=== PATIENT | female | born 1975 | race Caucasian/White ===

== ENCOUNTER 2017-07-13 11:13 | Outpatient (CLI) | payer BC | END 2017-07-13 11:14 | disposition home or self-care (01) | LOC: DTY/OP 11:13 | PROVIDERS: ATTEND Specialist | DX: Z01.818 Encounter for other preprocedural examination (principal); E66.01 Morbid (severe) obesity due to excess calories | CPT/HCPCS: 36415; 80053; 80061; 82306; 82607; 82728; 82746; 83036; 83540; 84425; 84436; 84443; 84479; 85025; 86677; 97802 ==

== ENCOUNTER 2017-08-16 11:30 | Inpatient (IN) | payer BC ==
--- NOTE | 2017-08-15 16:24 | HP ---
HISTORY OF PRESENT ILLNESS: A 42-year-old female recently attended our bariatric seminar and conside ring laparoscopic sleeve gastrectomy. She reports now for discussion. She lives in [place]. He r is retired [employer]. Patient states since she was 115 pounds when she was 23 years old, but salcido s consistently gained weight since her current age of 42. She has tried phentermine, losing 20 pound s, but gained it back as soon as she quits. She has tried many exercise programs and dietary efforts without durable success. She does smoke half a pack to a pack a day and is committed to stop smokin g and she will stop today. Her smokes some, not much, but he states he will also quit. He a ccompanies her today and they have attended our bariatric seminars, questions have been answered rega rding laparoscopic sleeve gastrectomy. The patient reports she does have GERD symptoms and takes Ewelina losec daily, but when she does not take Prilosec, she only has reflux symptoms once every 2-3 weeks. This is not a bad problem and has only occurred since she has gained weight. When she was thinner, she did not have this. Patient has symptoms of sleep apnea, but never has had a sleep study, her hus band witnesses her periods of apnea and snoring and restless sleep. She has been advised to start me dications for cholesterol, but she has been resistant to taking medications and thus has not started these. She complains of arthralgias in the back and feet related to her weight gain. She also suffe red stress urinary incontinence and arthralgias. ALLERGIES: None. SOCIAL HISTORY: Tobacco 1/2 pack per day. She states she will stop day. Alcohol rarely. MEDICATIONS: Synthroid 200 mcg a day, propranolol 40 mg a day, omeprazole 20 mg a day. PAST SURGICAL HISTORY: Appendectomy, cervical resection and tubal ligation. REVIEW OF SYSTEMS: Ten point noncontributory. PHYSICAL EXAMINATION: foot. VITAL SIGNS: 5 foot 3, 205 pounds, 36.3 BMI, 142/92, 86, 98.1 degrees. HEENT: Unremarkable. Pupils equal, round, reactive to light. Sclerae icteric. NECK: Neck, axilla or groin without lymphadenopathy. LUNGS: Clear to auscultation. CARDIAC: Regular rate and rhythm without murmur or gallop. ABDOMEN: Soft, obese, nontender. EXTREMITIES: Unremarkable. Palpable pedal pulses. NEUROLOGIC: Neurologically intact. No focal deficit. SKIN: Normal color, correct turgor. ASSESSMENT AND PLAN: Morbid obesity. The patient is committed to lifestyle changes and follow up to maximize her success. She has occasional reflux and I do not think that is a contraindication to a sleeve gastrectomy. I have explained the risks of operation, infection, bleeding, reoperation, perio perative leaks and bleeding, and understanding these risks and benefits, she consents. We will plan dietary counseling and psychology counseling, preoperative labs. Comorbidities of very mild GERD rel ated to weight gain, hypertension, arthralgias, elevated cholesterol, low back pain and symptoms of s leep apnea without previous sleep study, stress urinary incontinence, arthralgias.
[2017-08-16 10:56] VITALS: BMI 36.8
--- NOTE | 2017-08-16 12:20 | HP ---
This is an addendum to dictation #[id number] dictated 06/30/2017. HISTORY OF PRESENT ILLNESS: Jill Groves presents for followup in preparation for laparoscopic slee ve gastrectomy. She was seen 06/30/2017 after attending our bariatric seminar. She was 205 pounds, 36 BMI on 06/30/2017, today 208 pounds, 36 BMI. She has visited with our dietitian, has seen the ezra chologist and she is here for preoperative visit. She has comorbidities of hypertension, occasional infrequent GERD. She has a long history of unsucce ssful durable weight loss and wishes to proceed with laparoscopic sleeve gastrectomy. She understand s the risk of infection, bleeding, visceral injury and a staple line leakage, revisions and consents. She understands she will have to participate in good food selections to have a durable success. Ben au reports that her GERD has only been a problem since she has gained weight. She has never had probl ems with this in the past and she experiences reflux only once every 2-3 weeks. She only takes PPIs p.r.n. She has comorbidities of hypertension, elevated cholesterol, obesity related infrequent GERD and urinary urgency, undiagnosed sleep apnea, arthralgias, foot pain and knee pain. Preoperative lab oratories reveal a normal CBC, 07/13/2017, normal comprehensive metabolic profile. Cholesterol is el evated at 226, triglycerides 147, upper limits normal, hemoglobin A1c 5. Remainder of her labs preop eratively are normal. Thyroid function is normal. PAST MEDICAL HISTORY: Past medical history as noted above, obesity related GERD, hypertension, hypot hyroidism, Salas's thyroiditis, undiagnosed sleep apnea, no sleep study history. PAST SURGICAL HISTORY: Tubal ligation, laparoscopic appendectomy, cervix treated. MEDICATIONS: Synthroid daily 200 mcg, propranolol 40 mg a day, omeprazole 20 mg as needed. TOBACCO: None. ALCOHOL: None. REVIEW OF SYSTEMS: Ten point noncontributory. PHYSICAL EXAMINATION: VITAL SIGNS: Height 5 foot 3, 208 pounds, 36 BMI, 120/83, 75, 98.2 degrees. HEENT: Unremarkable. LUNGS: Clear to auscultation. CARDIAC: Regular rate and rhythm without murmur or gallop. ABDOMEN: Soft, nontender. EXTREMITIES: Unremarkable. ASSESSMENT AND PLAN: Morbid obesity. PLAN: Laparoscopic sleeve gastrectomy. She has met with our dietitian, seen a psychologist. She un derstands the risk and benefits and questions answered. We will proceed.
[2017-08-19] MEDS ORDERED: Heparin 5,000 UNITS/ML VIAL ONE (06:29)
[2017-08-19] MEDS ORDERED: Ketorolac Tromethamine 30 MG/ML VIAL ONE (06:29)
[2017-08-19] MEDS ORDERED: Scopolamine 1.5 mg/72 hour Patch ONE (06:29)
[2017-08-19] MEDS ORDERED: cefOXitin 2 GM, Syringe 1 ML in Sterile Water 10 ML SLOW IVP SCH (06:30)
[2017-08-19] MEDS ORDERED: Bupivacaine/Epinephrine 0.25% 30 ML VIAL ONE (06:39)
[2017-08-19] MEDS ORDERED: Fentanyl 250 MCG/5 ML VIAL ONE ×2 (06:59→09:48)
[2017-08-19] MEDS ORDERED: Promethazine HCl 25 MG/ML VIAL ONE (09:31)
[2017-08-19] MEDS ORDERED: Promethazine HCl 25 MG/ML VIAL SLOW IVP PRN (09:41)
[2017-08-19] MEDS ORDERED: Promethazine HCl 25 MG/ML VIAL IM PRN (09:41)
[2017-08-19] MEDS ORDERED: Ondansetron HCl/PF 4 MG/2 ML Vial IVP PRN (09:41)
[2017-08-19] MEDS ORDERED: Meperidine HCl/PF 25 MG/ML VIAL SLOW IVP PRN (09:41)
[2017-08-19] MEDS ORDERED: Morphine Sulfate 2 MG/ML SYRINGE SLOW IVP PRN (09:41)
[2017-08-19] MEDS ORDERED: Dextrose 50% Abboject 50 ML SYRINGE SLOW IVP PRN (09:51)
[2017-08-19] MEDS ORDERED: hydrALAZINE 20 MG/ML VIAL SLOW IVP PRN (09:51)
[2017-08-19] MEDS ORDERED: Dextrose 5% in Water 1,000 ML IV PRN (09:51)
[2017-08-19] MEDS ORDERED: Hydrocodone-Acetamin 15 ML UDCUP PO PRN (09:51)
[2017-08-19] MEDS ORDERED: diphenhydrAMINE 50 MG/ML VIAL IVP PRN (09:51)
[2017-08-19] MEDS ORDERED: hydrALAZINE 20 MG/ML VIAL ONE (10:01)
[2017-08-19] MEDS ORDERED: D5 1/2 NS w/20 mEq KCL 1,000 ML ONE (10:24)
--- NOTE | 2017-08-19 10:37 | OP ---
DATE OF PROCEDURE: 08/19/2017 PREOPERATIVE DIAGNOSES: Morbid obesity, 208 pounds, 36 BMI, hypertension, clinically, obstructive sl eep apnea. PROCEDURE: Laparoscopic sleeve gastrectomy over 36 Mauritanian bougie, staple line within 4 cm of the pyl orus, completion upper endoscopy, no bleeding. Easy passage, left subcostal 15 mm port site, stomach extraction site closed with 0 Vicryl GraNee needle. SURGEON: Dr. Luis Armando James ANESTHESIA: General. Local 0.25% Marcaine with epinephrine 60 mL. PROCEDURE: The patient was taken to the operating room where under general anesthesia, abdomen was p repared with ChloraPrep, draped in routine fashion. Local anesthetic infiltrated into the skin and s ubcutaneous tissue about all port sites. Supraumbilical incision made and pneumoperitoneum to 15 mmH g obtained with the Veress needle, replacing it with a 5 port and video laparoscope inserted. Bilate ral far lateral subcostal incision made and 5 ports placed. Bilateral midclavicular upper abdominal incisions made and a 15 port placed on the left and 12 port placed on the right. Subxiphoid incision made and a Nathansen liver retractor placed intra-abdominal reflecting the soft, malleable left lob e of the liver anteriorly against the abdominal wall. The stomach was identified. Placed the patien t in deep reverse Trendelenburg. Gastrocolic ligament and gastrosplenic ligament taken down with ser ial fires of the LigaSure, mobilizing the greater curvature of stomach within 4 cm of the pylorus and avoiding encroachment on the gastroesophageal junction. The left and right crura identified and the re was no hiatal hernia. Anesthesia placed a 36-Mauritanian bougie against and this laparoscopically adju sted against the lesser curvature and tipped down towards the pylorus and serial fires of the Endo-GI A stapler performed initially with green then gold and then blue fires, taking care to avoid encroach ment on the incisura and staying clear of the gastroesophageal junction. Once the stomach was comple tely freed and a good gastric sleeve recognized, the sleeve specimen removed through the 15 mm port a nd minute for port fascia approximated with 0 Vicryl GraNee needle [id number] suture. Staple li ne was inspected. Clips applied where necessary. I then performed an upper endoscopy placing the sc ope per os under direct visualization and using air insufflation passed throughout the esophagus and into the stomach, visualizing the pylorus, withdrawing the scope aspirating gas. There was no leakag e and no bleeding. Easy passage of the scope without obstruction. The esophagus and stomach, otherw ise normal. The scope was withdrawn. I then regowned and gloved and the staple line inspected. Goo d hemostasis noted. and Nathansen liver retractor removed. Liver appeared to be normal. Irrigant a nd pneumoperitoneum evacuated. All ports removed and all skin incisions approximated with interrupte d subdermal 4-0 Monocryl and DermaGlue applied.
[2017-08-19] MEDS: D5 1/2 NS w/20 mEq KCL 1,000 ML IV SCH ×2 (10:52→19:00)
[2017-08-19] MEDS: Ketorolac Tromethamine 30 MG/ML VIAL IVP SCH ×3 (11:04→23:31)
[2017-08-19] MEDS: Acetaminophen 1,000 MG in Premix Bag 1 BAG IVPB SCH ×3 (11:04→21:01)
[2017-08-19] MEDS: Ondansetron HCl/PF 4 MG/2 ML Vial IVP PRN ×2 (12:08→17:22)
[2017-08-19] MEDS ORDERED: FLU VACC QS2017-18 36 mo. & older 0.5 ML SYRINGE IM ONE (12:30)
[2017-08-19] MEDS ORDERED: Glycopyrrolate 0.2 MG/ML 5 ML SYRINGE ONE (14:40)
[2017-08-19] MEDS ORDERED: Lidocaine 1% PF 5 ML VIAL ONE (14:40)
[2017-08-19] MEDS ORDERED: Ondansetron HCl/PF 4 MG/2 ML Vial ONE (14:40)
[2017-08-19] MEDS ORDERED: PROPOFOL 200 MG/20 ML VIAL ONE (14:40)
[2017-08-19] MEDS ORDERED: Dexamethasone 20 MG/5 ML VIAL ONE (14:40)
[2017-08-19] MEDS ORDERED: Enoxaparin Sodium 40 MG/0.4 ML SYRINGE SC SCH (21:00)
[2017-08-20] MEDS: D5 1/2 NS w/20 mEq KCL 1,000 ML IV SCH ×2 (01:03→04:42)
[2017-08-20] MEDS: Acetaminophen 1,000 MG in Premix Bag 1 BAG IVPB SCH ×2 (04:42→10:18)
[2017-08-20 05:36] LABS: Anion Gap 12 mmol/L (10-20); BUN (Urea Nitrogen) 10 mg/dL (7.0-18.7); Calc. Creatinine Clearance 117 mL/min (70-130); Calcium 8.5 mg/dL (7.8-10.44); Carbon Dioxide 18 mmol/L (22-29); Chloride 107 mmol/L (98-107); Estimated GFR-MDRD 64; Glucose 133 mg/dL (70-105); Potassium 4.2 mmol/L (3.5-5.1); Sodium 133 mmol/L (136-145)
[2017-08-20 05:51] LABS: Band 7 % (5-11); Hemoglobin 10.6 g/dL (12.0-16.0); Lymphocytes 9 % (21-51); MDiff Complete? YES; Mean Corpuscular HGB CONC 31.5 g/dL (32.0-36.0); Mean Corpuscular Hemoglobin 29.7 pg (27.0-31.0); Mean Corpuscular Volume 94.1 fl (81.0-99.0); Mean Platelet Volume 8.3 fL (7.4-10.4); Monocytes 8 % (0-10); Neutrophil 76 % (42-75); PLT Morphology Comment Appears Adequate; Platelet Count 330 thou/uL (130-400); RBC Distribution Width 12.8 % (11.5-14.5); Red Blood Cell (RBC) Count 3.58 mill/uL (4.20-5.40); White Blood Cell (WBC) Count 21.5 thou/uL (4.8-10.8)
[2017-08-20] MEDS ORDERED: Levothyroxine Sodium 100 MCG TAB PO SCH (06:00)
[2017-08-20] MEDS: Ketorolac Tromethamine 30 MG/ML VIAL IVP SCH ×2 (06:06→11:55)
[2017-08-20] MEDS ORDERED: traMADol HCl 50 MG TAB PO PRN ×2 (08:00)
[2017-08-20] MEDS: Ondansetron HCl/PF 4 MG/2 ML Vial IVP PRN (08:07)
[2017-08-20] MEDS ORDERED: Pantoprazole 40 MG VIAL IVP SCH (09:00)
[2017-08-20] MEDS ORDERED: Propranolol 40 MG TAB PO SCH (09:00)
[2017-08-20 12:32] VITALS: BP 125/85; TEMP 97.7
[2017-08-20] MEDS ORDERED: Hydrocodone-Acetamin 15 ML UDCUP PO PRN (14:00)
--- NOTE | 2017-08-20 15:06 | PRG ---
DATE OF SERVICE: 08/20/2017 SUBJECTIVE: Ms. Groves is doing well today. PHYSICAL EXAMINATION: VITAL SIGNS: Stable, afebrile. LUNGS: Clear to auscultation. CARDIAC: Regular rate and rhythm without murmur or gallop. ABDOMEN: Soft, nontender. Surgical wounds look good. LABORATORY DATA: Normal. She is tolerating her liquids. She will be discharged home today with Lortab Elixir as needed over-t he-counter Tylenol pills or elixirs as needed. Follow in my office per appointment in 1-2 weeks. Di et and activity as tolerated, encourage ambulation.
[2017-08-20] MEDS ORDERED: Acetaminophen 500 MG TAB PO PRN (16:00)
--- NOTE | 2017-08-20 21:13 | DIS ---
DATE OF ADMISSION: 08/19/2017 DATE OF DISCHARGE: 08/20/2017 DISCHARGE DIAGNOSES: Morbid obesity, desires sleeve gastrectomy post-procedures laparoscopic sleeve gastrectomy, 36-Central African bougie, 4 cm within the pylorus, completion endoscopy. HISTORY: A 42-year-old female ago, attending our bariatric seminar gone through our bariatric preope rative program, seen by the psychologist, felt to be a good appropriate candidate, and seen by dietar y education on perioperative dietary changes for sleeve gastrectomy admitted the day of surgery after undergoing laparoscopic sleeve gastrectomy. Postoperatively, did well, convalesced, tolerated her d iet. This is one of my first patients but did not have a swallow study, as we have quit doing though , she did well, tolerated her liquids. Labs are normal, post-discharge. She will follow up in my of ariel in 1-2 weeks.
--- NOTE | 2017-09-16 09:36 | EKG ---
Test Reason : PREOP Blood Pressure : / mmHG Vent. Rate : 056 BPM Atrial Rate : 056 BPM P-R Int : 178 ms QRS Dur : 084 ms QT Int : 436 ms P-R-T Axes : 043 073 052 degrees QTc Int : 420 ms Sinus bradycardia with sinus arrhythmia Otherwise normal ECG No previous ECGs available Confirmed by DR. Jeremiah HILLMAN ([id number]) on 09/16/2017 9:34:31 AM Referred By: [place] Confirmed By:DR. Jeremiah HILLMAN
== END 2017-08-20 14:21 | disposition home or self-care (01) | DRG 621 ==
LOC: SURG A 08-19 06:09 → SJJU 08-19 10:17
PROVIDERS: ADMIT Specialist; ATTEND Specialist
PROC: 0DB64Z3 Excision of Stomach, Percutaneous Endoscopic Approach, Vertical (ICD-10-PCS; principal; 2017-08-19)
DX: E66.01 Morbid (severe) obesity due to excess calories (principal); E03.9 Hypothyroidism, unspecified; E78.5 Hyperlipidemia, unspecified; I10 Essential (primary) hypertension; K21.9 Gastro-esophageal reflux disease without esophagitis; G47.30 Sleep apnea, unspecified; Z68.36 Body mass index [BMI] 36.0-36.9, adult; F17.210 Nicotine dependence, cigarettes, uncomplicated
CPT/HCPCS: 36415; 80048; 85025; 88307; 88312; 93005; 93010; 94760; A4216; J0131; J0360; J0694; J1100; J1200; J1644; J1650; J1885; J2001; J2270; J2405; J2550; J2704; J3010

== ENCOUNTER 2017-08-28 21:11 | Inpatient (IN) | payer BC ==
[2017-08-28] MEDS ORDERED: Pantoprazole 40 MG VIAL IVP SCH (21:30)
[2017-08-28] MEDS: diphenhydrAMINE 50 MG/ML VIAL IVP PRN (22:40)
[2017-08-28] MEDS: Ketorolac Tromethamine 30 MG/ML VIAL IVP PRN (22:40)
[2017-08-28] MEDS: Acetaminophen 500 MG TAB PO PRN (22:40)
[2017-08-29] MEDS: Lactated Ringer's 1,000 ML IV SCH ×4 (03:41→19:58)
[2017-08-29 05:49] LABS: #Eosinphils 0.3 thou/uL (0.0-0.7); #Neutrophils 6.6 thou/uL (1.40-6.50); %Eosinophils 2.7 % (0.0-10.0); %Lymphocytes 20.2 % (21.0-51.0); %Monocytes 9.9 % (0.0-10.0); %Neutrophils 67.2 % (42.0-75.0); Mean Corpuscular HGB CONC 32.1 g/dL (32.0-36.0); Mean Corpuscular Hemoglobin 30.3 pg (27.0-31.0); Mean Corpuscular Volume 94.3 fl (81.0-99.0); Mean Platelet Volume 6.8 fL (7.4-10.4); Platelet Count 369 thou/uL (130-400); RBC Distribution Width 12.9 % (11.5-14.5); Red Blood Cell (RBC) Count 2.98 mill/uL (4.20-5.40); White Blood Cell (WBC) Count 9.9 thou/uL (4.8-10.8)
[2017-08-29 05:58] LABS: Anion Gap 12 mmol/L (10-20); BUN (Urea Nitrogen) 6 mg/dL (7.0-18.7); Calc. Creatinine Clearance 159 mL/min (70-130); Calcium 8.5 mg/dL (7.8-10.44); Carbon Dioxide 21 mmol/L (22-29); Chloride 109 mmol/L (98-107); Estimated GFR-MDRD Greater than 90; Glucose 79 mg/dL (70-105); Potassium 3.8 mmol/L (3.5-5.1); Sodium 138 mmol/L (136-145)
[2017-08-29] MEDS: Acetaminophen 500 MG TAB PO PRN ×2 (06:00→13:24)
[2017-08-29] MEDS: Ketorolac Tromethamine 30 MG/ML VIAL IVP PRN ×3 (06:00→19:57)
[2017-08-29 06:14] VITALS: BMI 35.9
--- NOTE | 2017-08-29 06:22 | HP ---
ATTENDING PHYSICIAN: Dr. Luis Armando James HISTORY OF PRESENT ILLNESS: Jill Edmondson is a 42-year-old female status post laparoscopic sleeve gas trectomy with Dr. James on 08/19/2017. Postoperatively, the patient was doing well and was discharg ed home on 08/20/2017. Since the time of discharge, the patient states that she has had persistent a bdominal pain which has continued to worsen. The patient states that she has been unable to tolerate the Marshall elixir secondary to headache, and that Tylenol has been unable to control the pain. As th e pain has been increasing she was also constipated starting 08/25/2017. She did give herself an daniel ma and has had multiple diarrhea-like bowel movements since that time, but no solid stool. This has not helped her pain. Overnight last night the patient reports a fever of 102 degrees associated with chills earlier this morning. She states that her pain is primarily left sided/left flank pain that radiates towards the front. She can find no aggravating or alleviating factors. She describes it as intermittent and crampy. She presented to the [facility] earlier today where she h ad a CT scan performed that demonstrated a subcapsular fluid collection around the spleen and splenic hematoma. She was transferred to [facility] for further management and care. Upon our meeta luation, the patient reports a chief complaint of left-sided pain as described. She has been afebril e since the time of arrival. ALLERGIES: None. HOME MEDICATIONS: Propranolol, Zofran, omeprazole, Synthroid. PAST MEDICAL HISTORY: Chronic medical illnesses include obesity, GERD, hypertension, hypothyroidism, status post Salas's thyroiditis. PAST SURGICAL HISTORY: Tubal ligation, laparoscopic appendectomy and laparoscopic sleeve gastrectomy . SOCIAL HISTORY: The patient denies tobacco or illicit drug use. PHYSICAL EXAMINATION: VITAL SIGNS: Blood pressure 120/78, pulse 77, temperature 98.4. GENERAL: A well-developed female in no acute distress, resting in bed. RESPIRATORY: Breathing is nonlabored. CARDIOVASCULAR: Regular rate and rhythm. ABDOMEN: Soft, nontender to palpation. No signs of peritonitis, guarding or rigidity. Surgical sit es are clean, dry, and intact without signs of erythema or drainage. EXTREMITIES: Moves all extremities x4. NEUROLOGIC: No focal deficit was noted. LABORATORY DATA: WBC 13.4, hemoglobin 10.7, hematocrit 31.5, platelet count 403. Sodium 137, potass ium 3.9, chloride 103, carbon dioxide 17, BUN 8, creatinine 0.72, glucose 88. Lactic acid 1.0. AST, ALT, and bilirubin within normal limits. Lipase 38. Urinalysis showed ketonuria, trace blood, smal l amount of bilirubin, some urobilinogen, 11-20 squamous cells and 2+ bacteria. RADIOLOGIC FINDINGS: CT of the abdomen and pelvis demonstrated subcapsular hematoma of the spleen wi th a small splenic lac medially and left-sided hemoperitoneum as well as left lung atelectasis. Ches t x-ray with left pleural effusion/atelectasis. ASSESSMENT: 1. Abdominal pain status post laparoscopic sleeve gastrectomy. 2. Splenic hematoma. 3. Acute blood loss anemia, stable from discharge 08/20/2017. 4. History of hypertension. 5. History of hypothyroidism. PLAN: Admit to Dr. James's service for pain control. A.m. labs. Gentle IV fluid hydration. Encou rage incentive spirometry and pulmonary toileting. The patient states that she has been having diffi culty sleeping secondary to pain. We will add IV Benadryl for now. The patient was seen and evaluat ed with Dr. Zamora who agrees with the assessment and plan.
[2017-08-29] MEDS: Pantoprazole 40 MG VIAL IVP SCH (09:29)
[2017-08-29] MEDS: Polyethylene Glycol 3350 17 GM Packet PO SCH (09:29)
[2017-08-29] MEDS ORDERED: Levothyroxine Sodium 100 MCG TAB PO SCH (11:00)
--- NOTE | 2017-08-29 12:09 | PRG ---
DATE OF SERVICE: 08/29/2017 HISTORY OF PRESENT ILLNESS: Jill Groves is a 42-year-old female, who underwent, 08/19/2017, lap aroscopic sleeve gastrectomy over a 36-Yakut bougie with clips placed along the staple line for hemo stasis. Staple line within 4 cm of the pylorus with postoperative upper endoscopy for morbid obesity , 208 pounds, 36 BMI. Comorbidities are hypertension chronically and symptoms of sleep apnea clinica lly without previous sleep study. The patient states that she was doing well and she had some upper abdominal discomfort from her incisions, but this is improving. She was tolerating her diet, taking her bariatric liquids and protein shakes without problems. Today, is Tuesday; she called [facility] and complained of some lower abdominal discomfort and had not had a bowel movement in several days . Dr. Cleveland on-call recommended enemas. The patient took several enemas and manually disimpacted herself of hard stool and felt a little better, but after undergoing the enemas, she began having lef t upper quadrant pain and nausea. She called Tuesday, yesterday, and given these complaints, even tho ugh she was having new left upper quadrant pain and reported a fever to 102.0 degrees, she went to [facility] (she lives in [place], [place]) and was evaluated there with a CT scan of the abdomen and pelvis with p.o. and IV contrast and laboratories. Her white count was mildly eleva lucía at 13,000. She had a mild increase in her anion gap. Her hemoglobin was 10.4. Her vital signs were stable, and because of the pain, she was having nausea, and a CAT scan obtained revealed absence of any post-sleeve gastrectomy leak, but she did have a large perisplenic hematoma, subcapsular kate alphonse, with some fluid in her pelvis. Because of her pain and these changes, she was admitted for hos pitalization hydration today. CAT scan also revealed some subtle densities in her gallbladder, suspi cious for stone or sludge. After overnight hydration and observation, her hemoglobin is now 9.0. Pr ior her operation, it was 14; postoperatively, 10.6; last night, 10.7; and 9.0 today. Patient states she feels somewhat better today, and she is tolerating liquids. Again, she states she only began salcido ving left upper quadrant pain after she took the enemas 3 days ago. There is no history of trauma. PHYSICAL EXAMINATION: VITAL SIGNS: 98.2 degrees, 68, 114/75. Currently 5 feet 3, 202 pounds, 35 BMI. LUNGS: Clear to auscultation. CARDIAC: Regular rate and rhythm without murmur, rub, or gallop. ABDOMEN: Soft, bowel sounds present, no guarding, mild tenderness in left upper quadrant. Surgical sites look good. No evidence of hernias. ASSESSMENT AND PLAN: Post-sleeve gastrectomy, perisplenic hematoma. This seems to be related to her enemas, and she was not having this pain postoperatively until after she took the enemas. Plan at t his time is to observe her. There is no indication for surgery. We will check her hemoglobin later today and tomorrow. Because of her CT scan findings of an abnormal gallbladder, we will obtain ultra sound of her gallbladder. We would want her to be ambulatory and SCDs and avoid Lovenox at this time . Hopefully, can discharge her home in the next 24 hours.
[2017-08-29] MEDS: Levothyroxine Sodium 100 MCG TAB PO SCH (13:24)
--- NOTE | 2017-08-29 14:08 | ULT ---
GALLBLADDER ULTRASOUND: Date: 08/29/17 HISTORY: Abnormal CT with hyperdensity noted in the gallbladder. COMPARISON: None. CORRELATION: Abdomen and pelvic CT dated 08/28/17. TECHNIQUE: Utilizing a multihertz transducer, sonographic imaging of the right upper quadrant is performed in th e longitudinal and transverse plane. FINDINGS: The head of the pancreas has a normal echotexture. The remainder of the pancreas is obscured by bowel gas. Visualized IVC is unremarkable. Hepatic parenchyma has a normal echotexture. No hepatic masses or intrahepatic biliary dilatation. Co ntour of the hepatic margin is maintained. Right hepatic lobe measures 16.5 cm. Main portal vein is patent. Appropriate direction of flow. Common bile duct diameter is 0.6 cm. There is echogenic material within the lumen of the gallbladder which may represent a significant ajay unt of sludge with possible small stones. Gallbladder wall is not thickened. There is no pericholecys tic fluid. Service Plumber reports a negative Sterling's sign. Right kidney measures 9.9 cm in maximum dimension. No hydronephrosis. IMPRESSION: Sludge and possible small stones within the lumen of the gallbladder. Findings do not suggest cholecy stitis at this time. Consider HIDA scan if warranted. POS: SHALA
[2017-08-29 17:08] LABS: #Eosinphils 0.3 thou/uL (0.0-0.7); #Lymphocytes 1.7 thou/uL (1.20-3.40); #Monocytes 0.9 thou/uL (0.11-0.59); #Neutrophils 6.4 thou/uL (1.40-6.50); %Basophils 0.3 % (0.0-1.0); %Eosinophils 2.9 % (0.0-10.0); %Lymphocytes 18.2 % (21.0-51.0); %Monocytes 10.1 % (0.0-10.0); %Neutrophils 68.4 % (42.0-75.0); Hemoglobin 9.8 g/dL (12.0-16.0); Mean Corpuscular HGB CONC 32.4 g/dL (32.0-36.0); Mean Corpuscular Hemoglobin 30.1 pg (27.0-31.0); Mean Corpuscular Volume 92.7 fl (81.0-99.0); Mean Platelet Volume 6.7 fL (7.4-10.4); Platelet Count 394 thou/uL (130-400); RBC Distribution Width 12.9 % (11.5-14.5); Red Blood Cell (RBC) Count 3.27 mill/uL (4.20-5.40); White Blood Cell (WBC) Count 9.3 thou/uL (4.8-10.8)
[2017-08-29] MEDS: diphenhydrAMINE 50 MG/ML VIAL IVP PRN (21:56)
[2017-08-30] MEDS: diphenhydrAMINE 50 MG/ML VIAL IVP PRN (00:26)
[2017-08-30] MEDS: Lactated Ringer's 1,000 ML IV SCH ×3 (03:08→21:25)
[2017-08-30 04:52] LABS: #Eosinphils 0.3 thou/uL (0.0-0.7); #Lymphocytes 1.7 thou/uL (1.20-3.40); #Monocytes 0.8 thou/uL (0.11-0.59); #Neutrophils 6.5 thou/uL (1.40-6.50); %Basophils 0.2 % (0.0-1.0); %Eosinophils 3.1 % (0.0-10.0); %Lymphocytes 18.1 % (21.0-51.0); %Monocytes 8.5 % (0.0-10.0); %Neutrophils 70.1 % (42.0-75.0); Hemoglobin 9.5 g/dL (12.0-16.0); Mean Corpuscular HGB CONC 32.2 g/dL (32.0-36.0); Mean Corpuscular Hemoglobin 31.1 pg (27.0-31.0); Mean Corpuscular Volume 96.5 fl (81.0-99.0); Platelet Count 397 thou/uL (130-400); RBC Distribution Width 13.1 % (11.5-14.5); Red Blood Cell (RBC) Count 3.07 mill/uL (4.20-5.40); White Blood Cell (WBC) Count 9.3 thou/uL (4.8-10.8)
[2017-08-30] MEDS: Levothyroxine Sodium 100 MCG TAB PO SCH (05:29)
[2017-08-30] MEDS: Ketorolac Tromethamine 30 MG/ML VIAL IVP PRN ×2 (05:32→17:24)
[2017-08-30] MEDS: Pantoprazole 40 MG VIAL IVP SCH (08:30)
[2017-08-30] MEDS: Polyethylene Glycol 3350 17 GM Packet PO SCH (09:10)
[2017-08-30] MEDS ORDERED: Ketorolac Tromethamine 30 MG/ML VIAL IVP SCH (15:45)
[2017-08-30] MEDS ORDERED: Acetaminophen 1,000 MG in Premix Bag 1 BAG IVPB SCH (15:45)
[2017-08-30] MEDS ORDERED: Scopolamine 1.5 mg/72 hour Patch TD SCH (16:00)
--- NOTE | 2017-08-30 16:16 | PRG ---
DATE OF SERVICE: 08/30/2017 SUBJECTIVE: Ms. Groves is doing better today. She is still having pain in left upper quadrant. OBJECTIVE: VITAL SIGNS: 98.3 degrees, 79, 143/95. LUNGS: Clear to auscultation. ABDOMEN: Soft. EXTREMITIES: Unremarkable. LABORATORY DATA: Hemoglobin 9.5, white count 9.3. Basic metabolic profile, stable yesterday. A CAT scan on admission revealed some gallbladder abnormalities. Ultrasound yesterday revealed gallstones , sludge. When I informed the patient of this, she reports past history of epigastric right upper qu adrant pain, postprandial. She has symptomatic gallstones. Although the reason for admission was he r perisplenic hematoma related to her enemas, she does report a past history of cholecystitis, cholel ithiasis, biliary colic. She wants to have this taken care of before she leaves the hospital, so she minimizes her time off work. Plan is for a laparoscopic cholecystectomy tomorrow. Risk of infectio n, bleeding, visceral injury, open procedure discussed. She consents. ASSESSMENT AND PLAN: Biliary colic. PLAN: Laparoscopic cholecystectomy tomorrow and discharge home later tomorrow.
[2017-08-31 05:33] LABS: #Eosinphils 0.3 thou/uL (0.0-0.7); #Lymphocytes 2.1 thou/uL (1.20-3.40); #Monocytes 0.9 thou/uL (0.11-0.59); #Neutrophils 7.7 thou/uL (1.40-6.50); %Basophils 0.3 % (0.0-1.0); %Eosinophils 2.8 % (0.0-10.0); %Lymphocytes 18.7 % (21.0-51.0); %Neutrophils 70.2 % (42.0-75.0); Mean Corpuscular HGB CONC 31.5 g/dL (32.0-36.0); Mean Corpuscular Hemoglobin 30.5 pg (27.0-31.0); Mean Corpuscular Volume 97.1 fl (81.0-99.0); Mean Platelet Volume 7.5 fL (7.4-10.4); Platelet Count 402 thou/uL (130-400); RBC Distribution Width 13.5 % (11.5-14.5); Red Blood Cell (RBC) Count 3.26 mill/uL (4.20-5.40)
[2017-08-31 05:42] LABS: ALT (SGPT) 9 U/L (8-55); AST (SGOT) 12 U/L (5-34); Albumin 3.1 g/dL (3.5-5.0); Alkaline Phosphatase 83 U/L (40-150); Anion Gap 15 mmol/L (10-20); BUN (Urea Nitrogen) 5 mg/dL (7.0-18.7); Bilirubin, Total 0.4 mg/dL (0.2-1.2); Calc. Creatinine Clearance 151 mL/min (70-130); Calcium 8.8 mg/dL (7.8-10.44); Carbon Dioxide 20 mmol/L (22-29); Chloride 107 mmol/L (98-107); Estimated GFR-MDRD 90; Globulin 2.9 g/dL (2.4-3.5); Glucose 76 mg/dL (70-105); Potassium 3.6 mmol/L (3.5-5.1); Sodium 138 mmol/L (136-145)
[2017-08-31] MEDS: Levothyroxine Sodium 100 MCG TAB PO SCH (06:11)
[2017-08-31] MEDS: Lactated Ringer's 1,000 ML IV SCH (06:24)
[2017-08-31] MEDS ORDERED: Bupivacaine HCl 0.5%/Epinephrine 1:200,000/PF 30 ml Vial ONE (07:45)
[2017-08-31] MEDS ORDERED: Acetaminophen 500 MG TAB PO PRN (08:14)
[2017-08-31] MEDS ORDERED: traMADol HCl 50 MG TAB PO PRN ×2 (08:14)
[2017-08-31 08:26] VITALS: BP 137/70
[2017-08-31] MEDS ORDERED: Levofloxacin 500 mg/D5W 100 ml Premix Bag ONE (08:41)
[2017-08-31] MEDS ORDERED: Ketorolac Tromethamine 30 MG/ML VIAL ONE (08:41)
[2017-08-31] MEDS ORDERED: Non-Formulary Item 1 EACH (Levothyroxine Sodium [Synthroid] 1 TAB) PO SCH (09:00)
[2017-08-31] MEDS ORDERED: Propranolol 40 MG TAB PO SCH (09:00)
[2017-08-31] MEDS ORDERED: Fentanyl 250 MCG/5 ML VIAL ONE (09:30)
[2017-08-31] MEDS ORDERED: Midazolam HCl 5 mg/5 ml Vial ONE (09:37)
[2017-08-31] MEDS: Polyethylene Glycol 3350 17 GM Packet PO SCH (09:55)
[2017-08-31] MEDS ORDERED: Ondansetron HCl/PF 4 MG/2 ML Vial IVP PRN (10:37)
[2017-08-31] MEDS ORDERED: Ketorolac Tromethamine 30 MG/ML VIAL IVP PRN (10:37)
[2017-08-31] MEDS ORDERED: Promethazine HCl 25 MG/ML VIAL IM PRN (10:37)
[2017-08-31] MEDS ORDERED: Meperidine HCl/PF 25 MG/ML VIAL SLOW IVP PRN (10:37)
[2017-08-31] MEDS ORDERED: Morphine Sulfate 2 MG/ML SYRINGE SLOW IVP PRN (10:37)
[2017-08-31] MEDS ORDERED: Promethazine HCl 25 MG/ML VIAL SLOW IVP PRN (10:37)
[2017-08-31] MEDS ORDERED: HYDROmorphone 2 MG/ML VIAL SLOW IVP PRN (10:37)
[2017-08-31] MEDS ORDERED: Promethazine HCl 25 MG/ML VIAL ONE (10:42)
--- NOTE | 2017-08-31 10:50 | OP ---
PREOPERATIVE DIAGNOSES: Status post laparoscopic sleeve gastrectomy with postoperative splenic hemat christen after enemas, stable hemoglobin 10.4, symptomatic cholelithiasis, chronic cholecystitis. PROCEDURE: Laparoscopic video cholecystectomy. SURGEON: Luis Armando James M.D. ANESTHESIA: General. Local 0.5% Marcaine with epinephrine, 30 mL. ESTIMATED BLOOD LOSS: Less than 10 mL. DESCRIPTION OF PROCEDURE: The patient was taken to the operating room under general anesthesia, abdo men was prepped with ChloraPrep and draped in routine fashion. Local anesthetic infiltrated into the skin and subcutaneous tissue about the port sites. The infraumbilical incision made through an old laparoscopic infraumbilical scar and pneumoperitoneum to 15 mmHg obtained with the Veress needle, rep lacing it with a 5 port and video laparoscope inserted. Liver appeared to be normal. Gallbladder salcido d stones and appeared to be cholesterolosis visualized through thin gallbladder wall. Fundus grasped and reflected cephalad. Infundibulum was grasped and reflected laterally. Cystic artery and duct d issected free. Critical view obtained. Cystic artery is duct doubly clipped proximally, divided. G allbladder dissected free from liver bed obtaining good hemostasis prior to division of final periton eal attachments. Gallbladder and contents removed and submitted to Pathology. Good hemostasis ensur ed in liver bed with cautery. Sujatha was applied. Irrigant and pneumoperitoneum evacuated after sle rubia gastrectomy was visualized. There was no hematoma around the sleeve gastrectomy and no abnormal findings. There were some omental adhesions in the left upper quadrant. I did not take these down t o visualize the spleen that by CAT scan had a perisplenic or intracapsular hematoma. Pneumoperitoneu m evacuated. All instruments removed and all skin incisions approximated with interrupted subdermal 4-0 Monocryl and DermaGlue applied.
--- NOTE | 2017-08-31 11:04 | DIS ---
DISCHARGE DIAGNOSES: 1. Perisplenic hematoma occurring after enemas. 2. Status post laparoscopic sleeve gastrectomy on 08/19/2017, 208 pounds, 36 BMI preoperatively. 3. Hypertension clinically. 4. Obstructive sleep apnea clinically. HISTORY: A 42-year-old female undergoing laparoscopic sleeve gastrectomy. Discharged home the next day. She was doing well, progressing on her bariatric full liquids experiencing lower abdominal pain . She called the physician vocational horticulture instructor who instructed her to take enemas. She had not had a bowel movem ent in several days. The patient took several enemas manually disimpacted herself of hard stool and then after that her lower abdominal pain resolved, but she began having left upper quadrant pain. Ben au called the on-call doctor 3 days after that event, Tuesday, who the physician vocational horticulture instructor director lois everett. After speaking to her, since she lives in [place] sent her to [facility] and t alked to the emergency room physicians there and they did a CAT scan with oral and IV contrast reveal ing absence of any leak, but she did have a perisplenic hematoma, some pelvic fluid and her hemoglobi n had dropped from preoperative 14, hemoglobin the day of discharge 10.6. When she was reevaluated i t was 10.7 on 08/28/2017 and then dropped to 9 and was 9.8, 9.5 and now 10 at the time of discharge. She was not transfused. The patient was observed. Her left upper quadrant pain improved. CAT scan did reveal gallstones. She did report prior history of bloating, belching, indigestion discomfort. She was having some of these symptoms on admission, although most of her pain is left upper quadrant and related to her spleen. The patient wanted to resolve her cholecystitis symptoms so she could re turn to work without rehospitalization. She underwent laparoscopic video cholecystectomy on the day of discharge and discharged to resume her home bariatric pureed diet, vitamins, iron and follow up in my office in 2 weeks. Avoid high impact activities, be active otherwise. The patient will resume h er home medications, propranolol daily, omeprazole daily, levothyroxine daily, Ultram as needed, Tyle nol for pain, MiraLax daily.
[2017-08-31] MEDS: Ketorolac Tromethamine 30 MG/ML VIAL IVP PRN (11:51)
[2017-08-31] MEDS: Pantoprazole 40 MG VIAL IVP SCH (11:59)
[2017-08-31 14:38] VITALS: TEMP 97.6
[2017-08-31] MEDS ORDERED: Glycopyrrolate 0.2 MG/ML 5 ML SYRINGE ONE (15:21)
[2017-08-31] MEDS ORDERED: Lidocaine 1% PF 5 ML VIAL ONE (15:21)
[2017-08-31] MEDS ORDERED: Ondansetron HCl/PF 4 MG/2 ML Vial ONE (15:21)
[2017-08-31] MEDS ORDERED: Propofol 200 MG/20 ML VIAL ONE (15:21)
== END 2017-08-31 14:41 | disposition home or self-care (01) | DRG 908 ==
LOC: SURG A 21:11
PROVIDERS: ADMIT Specialist; ATTEND Specialist
PROC: 0FT44ZZ Resection of Gallbladder, Percutaneous Endoscopic Approach (ICD-10-PCS; principal; 2017-08-31)
DX: D78.32 Postprocedural hematoma of the spleen following other procedure (principal); K80.10 Calculus of gallbladder with chronic cholecystitis without obstruction; D62 Acute posthemorrhagic anemia; G47.33 Obstructive sleep apnea (adult) (pediatric); I10 Essential (primary) hypertension; Z71.3 Dietary counseling and surveillance; E66.9 Obesity, unspecified; K21.9 Gastro-esophageal reflux disease without esophagitis; E03.9 Hypothyroidism, unspecified; E06.3 Autoimmune thyroiditis; Z90.49 Acquired absence of other specified parts of digestive tract; G89.18 Other acute postprocedural pain; Z68.35 Body mass index [BMI] 35.0-35.9, adult
CPT/HCPCS: 36415; 76705; 80048; 80053; 85025; 88304; A4216; C9113; J0131; J0670; J1200; J1885; J1956; J2001; J2250; J2405; J2550; J2704; J3010